=== PATIENT | male | born 1945 | race Caucasian/White ===

== ENCOUNTER 2025-01-27 07:47 | Day surgery (SDC) | payer MEDICARE, BC ==
[2025-01-20 10:47] LABS: MEAN PLATELET VOLUME 7.8 FL (7.4-10.4); PRE OP HEMATOCRIT 42.3 % (42.0-52.0); PRE OP HEMOGLOBIN 14.1 g/dL (14.0-17.9); PRE OP PLATELET COUNT 268 X10'3 (140-440); PRE OP WHITE BLOOD COUNT 7.8 10'3 (4.8-10.8); RED CELL DISTRIBUTION WIDTH 16.3 % (11.5-14.5)
[2025-01-20 11:03] LABS: CREATININE 1.34 MG/DL (0.60-1.10); PRE OP ALT 12 U/L (30-65); PRE OP ANION GAP 8 (8-16); PRE OP AST 21 U/L (10-37); PRE OP BILIRUB, TOTAL 0.4 MG/DL (0.0-1.0); PRE OP GLUCOSE 108 MG/DL (70-104); PRE OP POTASSIUM 4.2 MMOL/L (3.4-5.1); PRE OP SODIUM 138 MMOL/L (135-145); TOTAL CARBON DIOXIDE 22.1 MMOL/L (24-32); eGFR 51 ML/MIN
[~2025-01-27] VITALS: Ht 172.7 cm; Wt 68.5 kg
[2025-01-27] VITALS (18 sets, daily range): BP systolic 102–155; BP diastolic 64–83; PULSE 61–97; RESP 10–22; TEMP 97.8; O2SAT 92–99
[~2025-01-27 07:47] MED LIST: ASPI81TA52 PO; ATOR20TA66 PO; DOCUMENT DATE & TIME OF BETA-BLOCKER PO ONE; ESOM40CA49 PO; FOLI1TAB27 PO; LEVO100T9 PO; METH2.5T PO; METO-395 PO; PRED2.5T4 PO; TAMS-55
[2025-01-27] MEDS: ceFAZolin 2gm/dext,iso 50mL 50 ML IV ONE (08:59)
[2025-01-27] MEDS: ringers solution, lacted 1,000 ML IV SCH (08:59)
[2025-01-27] MEDS ORDERED: labetalol 20mg/4ml (5mg/ml) syringe IV PRN (10:35)
[2025-01-27] MEDS ORDERED: morphine 4 MG/ML inj SYRINge IV PRN (10:35)
[2025-01-27] MEDS ORDERED: fentaNYL/PF 50MCG/1 ML 2ML syringe IV PRN ×2 (10:35)
[2025-01-27] MEDS ORDERED: ringers solution, lacted 1,000 ML IV SCH (10:35)
[2025-01-27] MEDS ORDERED: hydrALAZINE 20mg/ml inj. IV PRN (10:35)
[2025-01-27] MEDS ORDERED: ondansetron/PF 4mg/2ml inj IV PRN (10:35)
[2025-01-27] MEDS ORDERED: BUPIVAcaine 2.5mg/ml inj 50ml vial (contains preservative) ONE (10:39)
[2025-01-27] MEDS ORDERED: LIDOcaine 1% 30ml preserv. free vial ONE (10:39)
[2025-01-27] MEDS ORDERED: midazolam 1 mg/ML 2ml injection ONE (10:45)
[2025-01-27] MEDS ORDERED: fentaNYL/PF 50MCG/1 ML 2ML syringe ONE (10:45)
[2025-01-27] MEDS ORDERED: ondansetron/PF 4mg/2ml inj ONE (10:46)
[2025-01-27] MEDS ORDERED: dexamethasone sod phosphate 4mg/ml inj. ONE (10:46)
[2025-01-27] MEDS ORDERED: LIDOcaine 2% (20mg/ml) 5ml vial ONE (10:46)
[2025-01-27] MEDS ORDERED: rocuronium 10mg/ml inj IV ONE (10:46)
[2025-01-27] MEDS ORDERED: ePHEDrine 50MG/ML INJ. ONE (11:07)
[2025-01-27] MEDS ORDERED: albumin (Human) 5% 250ml 250 ML IV ONE (11:07)
[2025-01-27] MEDS ORDERED: desflurane 240ml liquid inh. IH ONE (11:09)
[2025-01-27] MEDS ORDERED: propofol 10mg/ml 20ml vial IV ONE (11:09)
[2025-01-27] MEDS ORDERED: HYDROcodone/acetaminophen 5mg/325mg tablet PO PRN (12:10)
--- NOTE | 2025-01-27 12:11 | OPERATIVE REPORT ---
Operative Report Providers to CC: JORGE LUIS ESPINOZA MD ~ Date of Procedure: Jan 27, 2025 Pre-Operative Diagnosis: Right inguinal hernia Post-Operative Diagnosis SAME as PRE-Op Procedure Performed Robotic assisted, laparoscopic right inguinal hernia repair with mesh Surgeon: Jorge Luis Espinoza MD FACS Account Representative None Anesthesiologist: Vinay Carroll Type of Anesthesia: General Findings: Very large indirect right inguinal-scrotal hernia Wound Class I Complications None Prosthetics\Implants used: Extra-large right Dextile mesh Estimated Blood Loss: Minimal Specimen Removed: None Description of Procedure: Patient was brought to the operating room and identified by the nursing staff and the attending physician. Patient was placed supine and general anesthesia was induced. Patient's abdomen was prepped and draped in standard sterile fashion. Preoperative antibiotics were given. Supraumbilical incision was made to allow for standard Chavez entry technique. Laparoscope was inserted after insufflation. Bilateral, 8.5 mm robotic trochars were placed under laparoscopic guidance following administration of local anesthetic. The [employer] robotic arm was docked to the patient and instruments placed intra-abdominally under laparoscopic visualization. The left hemipelvis was examined and showed no evidence of left inguinal hernia. An indirect hernia was identified on the right side. Hernia sac was quite large in size. A rent was created in the peritoneum from the median umbilical fold and carried out laterally towards the anterior superior iliac spine. Preperitoneal flap was created and carried down to the symphysis pubis. The retropubic space of [place] was developed and the bladder swept medially. Dissection was carried out laterally until an indirect hernia sac was identified. This was very large in size. Hernia sac was completely dissected away from the cord structures and reduced. The critical view of the myopectineal orifice was achieved. Dissection was carried out laterally to allow space for mesh deployment. An extra- large, Dextile mesh and suture was passed intra-abdominally. Mesh was laid in the preperitoneal space covering both indirect, direct, and potential femoral and obturator hernias. Mesh laid without wrinkles or folds. 3 tacking sutures using 0 Ethibond were used to fix the mesh at the symphysis pubis, rectus abdominis, and just anterior to the anterior superior iliac spine. The peritoneal rent was then closed with running, 2/0, absorbable locking suture. [place] were retrieved. Abdomen was deflated and secondary trochars removed. Fascia at the umbilical port site was closed with 0 Vicryl sutures. Skin incisions were closed with 4-0 Monocryl sutures in a subcuticular fashion. Sterile dressings were applied. Patient was awakened and taken to the postanesthesia care unit in stable condition. Counts repoted as correct: Yes JORGE LUIS ESPINOZA MD Jan 27, 2025 12:11
[2025-01-27] MEDS: LidoCAINE 2% Topical Jelly 11mL syringe (UROJET) TOP ONE (13:52)
== END 2025-01-27 14:25 | disposition home or self-care (01) ==
LOC: PAS 07:47
PROVIDERS: ATTEND Surgery
DX: K40.90 Unilateral inguinal hernia, without obstruction or gangrene, not specified as recurrent (principal); I10 Essential (primary) hypertension; E78.5 Hyperlipidemia, unspecified; E03.9 Hypothyroidism, unspecified; K21.9 Gastro-esophageal reflux disease without esophagitis; F41.9 Anxiety disorder, unspecified; I25.2 Old myocardial infarction; Z79.82 Long term (current) use of aspirin; Z79.890 Hormone replacement therapy; Z79.899 Other long term (current) drug therapy; Z96.612 Presence of left artificial shoulder joint; Z98.890 Other specified postprocedural states; Z82.3 Family history of stroke; Z82.49 Family history of ischemic heart disease and other diseases of the circulatory system; Z83.3 Family history of diabetes mellitus; Z82.61 Family history of arthritis
CPT/HCPCS: 36415; 49650; 80053; 82948; 85025; A4215; A4314; A4618; C1781; J1100; J2003; J2250; J2371; J2405; J2704; J3010; J3490; J7030; J7120; P9045; Z7506; Z7508; Z7512; Z7610